=== PATIENT | female | born 1960 | race Caucasian/White ===

== ENCOUNTER 2016-08-07 22:13 | Emergency (ER) | payer MEDICAID, OTHER ==
[~2016-08-07] VITALS: Ht 165.1 cm; Wt 81.6 kg
[~2016-08-07 22:13] MED LIST: ESOM20CA37 PO; HYDR-552 PO; NAPR500T3 PO
[2016-08-07 22:16] VITALS: BP 167/84
== END 2016-08-07 23:22 | disposition home or self-care (01) ==
LOC: ER 22:15
DX: Z46.89 Encounter for fitting and adjustment of other specified devices (principal); I10 Essential (primary) hypertension
CPT/HCPCS: 99281; A4606; Z7610; Z7502

== ENCOUNTER 2016-08-31 09:31 | Emergency (ER) | payer OTHER ==
[~2016-08-31] VITALS: Ht 165.1 cm; Wt 86.2 kg
[2016-08-31 09:35] VITALS: BP 126/71
== END 2016-08-31 10:00 | disposition home or self-care (01) ==
LOC: ER 09:32
DX: F32.9 Major depressive disorder, single episode, unspecified (principal); G89.29 Other chronic pain; I10 Essential (primary) hypertension
CPT/HCPCS: 99283; A4606; Z7610

== ENCOUNTER 2016-12-08 21:16 | Emergency (ER) | payer OTHER ==
[~2016-12-08] VITALS: Ht 165.1 cm; Wt 81.6 kg
[2016-12-08 22:01] VITALS: BP 134/60
--- NOTE | 2016-12-09 01:27 | NUR ---
PT TAMARA AFTER SHE WAS SEEN BY DR. CORRALES.
--- NOTE | 2016-12-09 01:38 | NUR ---
PT RETURNED TO THE ER FOR THE ACI. PT REC'D ALL ACI AND AMBULATED OUT WITH A STEADY GAIT.
== END 2016-12-09 01:30 | disposition left against medical advice (07) ==
LOC: ER 21:23
DX: G89.29 Other chronic pain (principal); M25.561 Pain in right knee; M25.562 Pain in left knee; I10 Essential (primary) hypertension; Z98.890 Other specified postprocedural states
CPT/HCPCS: 99281; A4606; Z7610; Z7502

== ENCOUNTER 2019-04-24 01:31 | Emergency (ER) | payer OTHER ==
[~2019-04-24] VITALS: Ht 165.1 cm; Wt 68.0 kg
[~2019-04-24 01:31] MED LIST changes: +HYDR-4384 PO; -HYDR-552 PO; +NAPR-1009 PO; -NAPR500T3 PO
[2019-04-24] MEDS ORDERED: ONDANSETRON 4 MG TAB.RAPDIS ONE (01:41)
[2019-04-24] MEDS ORDERED: LORAZEPAM INJ 2 MG/ML VIAL ONE (01:42)
[2019-04-24] MEDS ORDERED: LORAZEPAM INJ 2 MG/ML VIAL IM ONE (02:00)
[2019-04-24] MEDS ORDERED: ONDANSETRON 4 MG TAB.RAPDIS SL ONE ×2 (02:00→03:00)
[2019-04-24 03:11] VITALS: BP 158/98
== END 2019-04-24 03:11 | disposition home or self-care (01) ==
LOC: ER 01:32
DX: R11.2 Nausea with vomiting, unspecified (principal); F12.90 Cannabis use, unspecified, uncomplicated; I10 Essential (primary) hypertension; E11.9 Type 2 diabetes mellitus without complications; Z98.890 Other specified postprocedural states; Z79.899 Other long term (current) drug therapy
CPT/HCPCS: 82962; 96372; 99283; J2060; Q0162

== ENCOUNTER 2021-11-14 18:19 | Emergency (ER) | payer BC ==
[~2021-11-14] VITALS: Ht 165.1 cm; Wt 98.7 kg
--- NOTE | 2021-11-14 18:37 | NUR ---
BIBS FOR C/O WALTER RIB AND CHEST PAIN, WALTER HIP PAIN, LEFT FOOT PAIN RADIATING BIBS FOR C/O WALTER RIB AND CHEST PAIN, WALTER HIP PAIN, LEFT FOOT PAIN RADIATING THE REIKI PRACTITIONER. ADMITS HITTING HEAD ON THE GROUND. DENIES KO OR LOC. LANDED ON THE LEFT SIDE. THE PATIENT IS ALERT AND ORIENTED X4. IN ROOM AIR. DENIES SOB. RESPIRATION REGULAR AND UNLABORED. ATTACHED TO THE MONITOR. WILL CONTINUE TO MONITOR THE PATIENT.
--- NOTE | 2021-11-14 18:40 | NUR ---
DR CRYSTAL AT THE BEDSIDE
--- NOTE | 2021-11-14 18:49 | NUR ---
THE PATIENT IS TAKEN TO CT [facility]IA [facility]
[2021-11-14] MEDS ORDERED: HYDROCODONE/APAP 5/325MG TABLET PO ONE (19:00)
[2021-11-14] MEDS ORDERED: HYDROCODONE/APAP 5/325MG TABLET ONE (19:05)
--- NOTE | 2021-11-14 19:05 | NUR ---
THE PATIENT IS BACK FROM [facility]IA [facility]
[2021-11-14] MEDS ORDERED: HYDR-4303 PO (20:22)
[2021-11-14 20:30] VITALS: BP 137/74
== END 2021-11-14 20:36 | disposition home or self-care (01) ==
LOC: ER 18:28
DX: S13.4XXA Sprain of ligaments of cervical spine, initial encounter (principal); S93.492A Sprain of other ligament of left ankle, initial encounter; S20.212A Contusion of left front wall of thorax, initial encounter; S70.02XA Contusion of left hip, initial encounter; S80.02XA Contusion of left knee, initial encounter; I10 Essential (primary) hypertension; E11.9 Type 2 diabetes mellitus without complications; F17.200 Nicotine dependence, unspecified, uncomplicated; Z98.890 Other specified postprocedural states; Z79.899 Other long term (current) drug therapy; V19.9XXA Pedal cyclist (driver) (passenger) injured in unspecified traffic accident, initial encounter; Y93.55 Activity, bike riding; Y92.89 Other specified places as the place of occurrence of the external cause; Y99.8 Other external cause status
CPT/HCPCS: 71250-TC; 72125-TC; 73564-TC; 73610-TC

== ENCOUNTER 2023-08-09 12:44 | Emergency (ER) | payer BC, OTHER ==
[~2023-08-09] VITALS: Ht 165.1 cm; Wt 98.9 kg
[~2023-08-09 12:44] MED LIST changes: +HYDR-4303 PO
[2023-08-09] MEDS ORDERED: IV NS 0.9% 1,000 ML BAG IV ONE (14:30)
[2023-08-09 14:51] LABS: BASOPHILS % (AUTO) 0.6 % (0.0-2.0); EOSINOPHILS # (AUTO) 0.1 K/uL (0.0-0.7); EOSINOPHILS % (AUTO) 1.8 % (0.0-6.0); HEMATOCRIT 41 % (33-45); HEMOGLOBIN 13.9 g/dL (11.5-14.8); LYMPHOCYTES # (AUTO) 1.8 K/uL (0.8-4.8); LYMPHOCYTES % (AUTO) 24.8 % (20.0-44.0); MEAN CORPUSCULAR HEMOGLOBIN 29 PG (26.0-33.0); MEAN CORPUSCULAR HGB CONC 34 g/dl (31.0-36.0); MEAN CORPUSCULAR VOLUME 84 fL (82-100); MONOCYTES # (AUTO) 0.5 K/uL (0.1-1.30); MONOCYTES % (AUTO) 6.1 % (2.0-12.0); NEUTROPHILS # (AUTO) 4.9 K/uL (1.8-8.9); NEUTROPHILS % (AUTO) 66.7 % (43.0-81.0); PLATELET COUNT (AUTO) 430 K/uL (150-450); RED BLOOD CELL COUNT(AUTO) 4.88 MIL/uL (4.0-5.2); RED CELL DISTRIBUTION WIDTH 13.8 % (11.5-15.0); WHITE BLOOD COUNT (AUTO) 7.4 K/uL (4.3-11.0)
[2023-08-09 15:14] LABS: CALCIUM, SERUM 10.5 mg/dL (8.5-10.1); CREATININE 0.9 mg/dL (0.6-1.3); POTASSIUM 4.3 mmol/L (3.5-5.1)
[2023-08-09] MEDS ORDERED: INSU100V7 SQ (16:00)
[2023-08-09 16:36] VITALS: BP 134/80; TEMP 98.2; O2SAT 98
== END 2023-08-09 16:00 | disposition home or self-care (01) ==
LOC: ER 12:55
DX: R19.7 Diarrhea, unspecified (principal); E11.9 Type 2 diabetes mellitus without complications; I10 Essential (primary) hypertension; F17.200 Nicotine dependence, unspecified, uncomplicated; Z60.2 Problems related to living alone; Z79.4 Long term (current) use of insulin; Z79.899 Other long term (current) drug therapy
CPT/HCPCS: 99284; 96360; 96361; 93005; 85025; 80048; 36415; 82962; J7030